=== PATIENT | male | born 1995 | race Caucasian/White ===

== ENCOUNTER 2019-08-01 13:02 | Emergency (ER) | payer OTHER ==
[2019-08-01 13:42] LABS: ABS Basophils 0.1 10^3/ul (0-0.2); ABS Eosinophils 0.1 10^3/ul (0-0.6); ABS Lymphocytes 3.3 10^3/ul (1.0-4.8); ABS Monocytes 0.6 10^3/ul (0-0.8); ABS Neutrophils 5.3 10^3/ul (1.5-7.7); Eosinophil % 0.7 %; Hematocrit 48 % (42-52); Hemoglobin 16.5 g/dL (14.0-18.0); Lymphocyte % 34.9 %; Mean Corpuscular HGB Conc 35 g/dL (31-36); Mean Corpuscular Hemoglobin 30 pg (27-31); Mean Corpuscular Volume 86 fL (80-94); Mean Platelet Volume 7.1 fL (7.4-10.4); Nucleated Red Blood Cells % 0.1; Platelet Count 405 10^3/uL (150-450); Red Blood Count 5.53 10^6 /uL (4.18-5.48); Red Cell Distribution Width 14 % (10-15); White Blood Count 9.4 10^3/uL (3.5-10.8)
[2019-08-01 13:58] LABS: ALT 34 U/L (7-52); AST 22 U/L (13-39); Albumin 4.7 g/dL (3.2-5.2); Albumin/Globulin Ratio 1.6 (1-3); Alkaline Phosphatase 92 U/L (34-104); Anion Gap 7 mmol/L (2-11); BUN/Creatinine Ratio 13.3 (8-20); Blood Urea Nitrogen 14 mg/dL (6-24); CO2 Carbon Dioxide 24 mmol/L (22-32); Calcium 10.3 mg/dL (8.6-10.3); Chloride 107 mmol/L (101-111); EGFR African American 105.9 (>60); EGFR Non-African American 87.5 (>60); Globulin 2.9 g/dL (2-4); Glucose 106 mg/dL (70-100); Potassium 4.3 mmol/L (3.5-5.0); Sodium 138 mmol/L (135-145); Total Protein 7.6 g/dL (6.4-8.9)
[2019-08-01 14:16] LABS: Acetaminophen < 15 mcg/mL; Alcohol < 10 mg/dL (<10); Salicylate < 2.50 mg/dL (<30)
[2019-08-01 14:30] LABS: TSH (Thyroid Stimulating Horm) 1.22 mcIU/mL (0.34-5.60)
--- NOTE | 2019-08-01 14:34 | ED ---
Psychiatric Complaint - HPI Summary HPI Summary: This patient is a 23-year-old male presenting to the ED with a long history of depression and past medical history of instances of self-harm with self harming behavior. Patient states he has not been more depressed recently, however sometimes it just "is instantaneous" and he develops feelings of suicide. He states he has a plan to overdose and has been researching what medications and to what dosage he would need to complete the act of suicide. He also is trying to make a plan aborted by these medications without raising concerns from pharmacies. He does admit to having therapy in the past, however he denies any hospitalization. He states he has lived with the [facility] for years but the thoughts are now more prominent and now he feels he may take action. Arrival into the ED, patient is denying any active suicidal thoughts at this very time, however he states this may change if he were at home. He has never made any attempts in the past, however he has had a history of self harming behavior. Last night he states he took a knife and made small leija to the dorsum of the left arm. Medications include dexmethylphenidate. PMHx depression, anxiety, self harm. - History Of Current Complaint Chief Complaint: EDSuicidal Time Seen by Provider: 08/01/19 13:15 Hx Obtained From: Patient Onset/Duration: Sudden Onset Timing: Constant Severity Initially: Moderate Severity Currently: Moderate Character: Manic, Depressed Aggravating Factor(s): Nothing Alleviating Factor(s): Nothing Associated Signs And Symptoms: Positive: Negative Related History: Positive For: Prior Psychiatric Issues Has Suicidal: Reports: Thoughts, With A Plan - overdose - Allergies/Home Medications Allergies/Adverse Reactions: Allergies Allergy/AdvReac Type Severity Reaction Status Date / Time No Known Allergies Allergy Verified 08/01/19 13:13 Home Medications: Home Medications Dexmethylphenidate HCl [Focalin Xr] 30 mg PO DAILY 08/01/19 [History Confirmed 08/01/19] PMH/Surg Hx/FS Hx/Imm Hx Previously Healthy: Yes Infectious Disease History: No Infectious Disease History: Denies: Traveled Outside the [place] in Last 30 Days - Social History Occupation: Unemployed Lives: Alone Alcohol Use: None Hx Substance Use: No Substance Use Type: Reports: None Smoking Status (MU): Never Smoked Tobacco Review of Systems Negative: Fever, Chills, Fatigue, Skin Diaphoresis Negative: Palpitations, Chest Pain Negative: Shortness Of Breath, Cough Genitourinary: Negative Positive: no symptoms reported, see HPI Negative: Arthralgia, Myalgia Positive: Other - superficial lacerations to the forearm Neurological: Negative Positive: Anxious, Depressed All Other Systems Reviewed And Are Negative: Yes Physical Exam Triage Information Reviewed: Yes Vital Signs On Initial Exam: Initial Vitals Temp Pulse Resp BP Pulse Ox 98.6 F 82 16 170/99 97 08/01/19 13:08 08/01/19 13:08 08/01/19 13:08 08/01/19 13:08 08/01/19 13:08 Vital Signs Reviewed: Yes Appearance: Positive: Well-Appearing, Well-Nourished Skin: Positive: Warm, Skin Color Reflects Adequate Perfusion Head/Face: Positive: Normal Head/Face Inspection Eyes: Positive: EOMI, Conjunctiva Clear Neck: Positive: Supple, No Lymphadenopathy Respiratory/Lung Sounds: Positive: Clear to Auscultation, Breath Sounds Present Cardiovascular: Positive: RRR, Pulses are Symmetrical in both Upper and Lower Extremities Musculoskeletal: Positive: Normal, Strength/ROM Intact Neurological: Positive: Speech Normal Psychiatric: Positive: Normal - patient cooperative for exam AVPU Assessment: Alert Procedures - Sedation Patient Received Moderate/Deep Sedation with Procedure: No Diagnostics - Vital Signs Vital Signs Temp Pulse Resp BP Pulse Ox 08/01/19 13:08 98.6 F 82 16 170/99 97 - Laboratory Lab Results: Lab Results 08/01/19 08/01/19 Range/Units 13:34 13:34 WBC 9.4 (3.5-10.8) 10^3/uL RBC 5.53 H (4.18-5.48) 10^6 /uL Hgb 16.5 (14.0-18.0) g/dL Hct 48 (42-52) % MCV 86 (80-94) fL MCH 30 (27-31) pg MCHC 35 (31-36) g/dL RDW 14 (10-15) % Plt Count 405 (150-450) 10^3/uL MPV 7.1 L (7.4-10.4) fL Neut % (Auto) 57.1 % Lymph % (Auto) 34.9 % [place] % (Auto) 6.6 % Eos % (Auto) 0.7 % Baso % (Auto) 0.7 % Absolute Neuts (auto) 5.3 (1.5-7.7) 10^3/ul Absolute Lymphs (auto) 3.3 (1.0-4.8) 10^3/ul Absolute Monos (auto) 0.6 (0-0.8) 10^3/ul Absolute Eos (auto) 0.1 (0-0.6) 10^3/ul Absolute Basos (auto) 0.1 (0-0.2) 10^3/ul Absolute Nucleated RBC 0.0 10^3/ul Nucleated RBC % 0.1 Sodium 138 (135-145) mmol/L Potassium 4.3 (3.5-5.0) mmol/L Chloride 107 (101-111) mmol/L Carbon Dioxide 24 (22-32) mmol/L Anion Gap 7 (2-11) mmol/L BUN 14 (6-24) mg/dL Creatinine 1.05 (0.67-1.17) mg/dL Est GFR ( Amer) 105.9 (>60) Est GFR (Non-Af Amer) 87.5 (>60) BUN/Creatinine Ratio 13.3 (8-20) Glucose 106 H (70-100) mg/dL Calcium 10.3 (8.6-10.3) mg/dL Total Bilirubin 0.60 (0.2-1.0) mg/dL AST 22 (13-39) U/L ALT 34 (7-52) U/L Alkaline Phosphatase 92 (34-104) U/L Total Protein 7.6 (6.4-8.9) g/dL Albumin 4.7 (3.2-5.2) g/dL Globulin 2.9 (2-4) g/dL Albumin/Globulin Ratio 1.6 (1-3) TSH Pending Salicylates < 2.50 (<30) mg/dL Acetaminophen < 15 mcg/mL Serum Alcohol < 10 (<10) mg/dL Result Diagrams: 08/01/19 13:34 08/01/19 13:34 Lab Statement: Any lab studies that have been ordered have been reviewed, and results considered in the medical decision making process. Course/Dx - Course Course Of Treatment: This patient is evaluated for self harming behavior and suicidal ideations which have been present for several years, however have been more severe in the past few weeks. He does admit to self-harm last night. On physical examination, patient appears well and is smiling on exam. There are small very superficial lacerations to his left forearm which require no additional medical care. Patient is cleared for mental health evaluation at 2: 30 PM. - Differential Dx/Clinical Impression Provider Diagnosis: Depressive disorder Discharge ED - Sign-Out/Discharge Documenting (check all that apply): Sign-Out Patient Signing out patient TO: Earl San - Discharge Plan Condition: Stable Disposition: PSYCHIATRIC FACILITY-OTHER Referrals: [facility] - [place] SAUCEDA [Primary Care Provider] - - Billing Disposition and Condition Condition: STABLE Disposition: Psychiatric Facility Other
[2019-08-01 16:33] LABS: Urine Benzodiazepine Screen None Detected (None Detect); Urine Opiates Screen None Detected (None Detect)
[2019-08-01 16:38] LABS: Urine Bacteria Absent (Absent); Urine Red Blood Cell Absent (Absent); Urine White Blood Cell Trace(0-5/hpf) (Absent)
[2019-08-01 16:43] LABS: Urine Appearance Clear; Urine Color Yellow; Urine Specific Gravity 1.025 (1.010-1.030); Urine Urobilinogen Negative (Negative)
[2019-08-01 16:44] LABS: Urine Bilirubin Negative (Negative); Urine Blood Negative (Negative); Urine Glucose Negative (Negative); Urine Ketones Negative (Negative); Urine Nitrite Negative (Negative); Urine Protein Negative (Negative)
[2019-08-01] MEDS ORDERED: hydrOXYzine HCL TAB* 50 MG PO ONE (23:41)
--- NOTE | 2019-08-02 13:25 | PN ---
ED Psychiatric Progress Note Date of Service: 08/02/19 Subjective: This is a 23 year-old M who is pending admission to [facility] / transfer to another psychiatric facility / discharge to home / or being observed secondary to suicidal ideation and inability to contract for safety "I feel better today but I don't know if because i am in a hospital. Objective: Alert, oriented x 3, improving mood, less SI and no plan, but does not relably contract for safety if discharged. He denies A/VH. Assessment: Patient is unsafe for discharge at the current time. Plan: Pending psychiatric transfer / admit / discharge will follow up daily. Vital Signs Temp Pulse Resp BP Pulse Ox 97.7 F 82 16 147/71 99 08/01/19 22:51 08/01/19 22:51 08/01/19 22:51 08/01/19 22:51 08/01/19 22:51 Lab Results - Entire Visit 08/01/19 08/01/19 08/01/19 15:59 15:59 13:34 WBC RBC Hgb Hct MCV MCH MCHC RDW Plt Count MPV Neut % (Auto) Lymph % (Auto) [place] % (Auto) Eos % (Auto) Baso % (Auto) Absolute Neuts (auto) Absolute Lymphs (auto) Absolute Monos (auto) Absolute Eos (auto) Absolute Basos (auto) Absolute Nucleated RBC Nucleated RBC % Sodium 138 Potassium 4.3 Chloride 107 Carbon Dioxide 24 Anion Gap 7 BUN 14 Creatinine 1.05 Est GFR ( Amer) 105.9 Est GFR (Non-Af Amer) 87.5 BUN/Creatinine Ratio 13.3 Glucose 106 H Calcium 10.3 Total Bilirubin 0.60 AST 22 ALT 34 Alkaline Phosphatase 92 Total Protein 7.6 Albumin 4.7 Globulin 2.9 Albumin/Globulin Ratio 1.6 TSH 1.22 Urine Color Yellow Urine Appearance Clear Urine pH 5 Ur Specific [place] 1.025 Urine Protein Negative Urine Ketones Negative Urine Blood Negative Urine Nitrate Negative Urine Bilirubin Negative Urine Urobilinogen Negative Ur Leukocyte Esterase Negative Urine WBC (Auto) Trace(0-5/hpf) Urine RBC (Auto) Absent Urine Bacteria Absent Urine Glucose Negative Urine Ascorbic Acid Not Reportable Salicylates < 2.50 Urine Opiates Screen None detected Acetaminophen < 15 Ur Barbiturates Screen None detected Ur Phencyclidine Scrn None detected Ur Amphetamines Screen None detected U Benzodiazepines Scrn None detected Urine Cocaine Screen None detected U Cannabinoids Screen None detected Serum Alcohol < 10 08/01/19 13:34 WBC 9.4 RBC 5.53 H Hgb 16.5 Hct 48 MCV 86 MCH 30 MCHC 35 RDW 14 Plt Count 405 MPV 7.1 L Neut % (Auto) 57.1 Lymph % (Auto) 34.9 [place] % (Auto) 6.6 Eos % (Auto) 0.7 Baso % (Auto) 0.7 Absolute Neuts (auto) 5.3 Absolute Lymphs (auto) 3.3 Absolute Monos (auto) 0.6 Absolute Eos (auto) 0.1 Absolute Basos (auto) 0.1 Absolute Nucleated RBC 0.0 Nucleated RBC % 0.1 Sodium Potassium Chloride Carbon Dioxide Anion Gap BUN Creatinine Est GFR ( Amer) Est GFR (Non-Af Amer) BUN/Creatinine Ratio Glucose Calcium Total Bilirubin AST ALT Alkaline Phosphatase Total Protein Albumin Globulin Albumin/Globulin Ratio TSH Urine Color Urine Appearance Urine pH Ur Specific [place] Urine Protein Urine Ketones Urine Blood Urine Nitrate Urine Bilirubin Urine Urobilinogen Ur Leukocyte Esterase Urine WBC (Auto) Urine RBC (Auto) Urine Bacteria Urine Glucose Urine Ascorbic Acid Salicylates Urine Opiates Screen Acetaminophen Ur Barbiturates Screen Ur Phencyclidine Scrn Ur Amphetamines Screen U Benzodiazepines Scrn Urine Cocaine Screen U Cannabinoids Screen Serum Alcohol
--- NOTE | 2019-08-03 06:58 | PN ---
ED Psychiatric Progress Note Date of Service: 08/01/19 Subjective: This is a 23 year-old M who is pending admission to [facility] / transfer to another psychiatric facility to depression. Pt. examined in room 15 at 0658. He is sleeping comfortably. Objective: Vitals: Most recent vital signs documented below. General NAD Laboratory: Current laboratory results documented below. Assessment: Depression. Plan: Pending transfer. Vital Signs Temp Pulse Resp BP Pulse Ox 97.6 F 56 18 141/67 97 08/03/19 04:08 08/03/19 04:08 08/03/19 04:08 08/03/19 04:08 08/03/19 04:08 Lab Results - Entire Visit 08/01/19 08/01/19 08/01/19 15:59 15:59 13:34 WBC RBC Hgb Hct MCV MCH MCHC RDW Plt Count MPV Neut % (Auto) Lymph % (Auto) [place] % (Auto) Eos % (Auto) Baso % (Auto) Absolute Neuts (auto) Absolute Lymphs (auto) Absolute Monos (auto) Absolute Eos (auto) Absolute Basos (auto) Absolute Nucleated RBC Nucleated RBC % Sodium 138 Potassium 4.3 Chloride 107 Carbon Dioxide 24 Anion Gap 7 BUN 14 Creatinine 1.05 Est GFR ( Amer) 105.9 Est GFR (Non-Af Amer) 87.5 BUN/Creatinine Ratio 13.3 Glucose 106 H Calcium 10.3 Total Bilirubin 0.60 AST 22 ALT 34 Alkaline Phosphatase 92 Total Protein 7.6 Albumin 4.7 Globulin 2.9 Albumin/Globulin Ratio 1.6 TSH 1.22 Urine Color Yellow Urine Appearance Clear Urine pH 5 Ur Specific [place] 1.025 Urine Protein Negative Urine Ketones Negative Urine Blood Negative Urine Nitrate Negative Urine Bilirubin Negative Urine Urobilinogen Negative Ur Leukocyte Esterase Negative Urine WBC (Auto) Trace(0-5/hpf) Urine RBC (Auto) Absent Urine Bacteria Absent Urine Glucose Negative Urine Ascorbic Acid Not Reportable Salicylates < 2.50 Urine Opiates Screen None detected Acetaminophen < 15 Ur Barbiturates Screen None detected Ur Phencyclidine Scrn None detected Ur Amphetamines Screen None detected U Benzodiazepines Scrn None detected Urine Cocaine Screen None detected U Cannabinoids Screen None detected Serum Alcohol < 10 08/01/19 13:34 WBC 9.4 RBC 5.53 H Hgb 16.5 Hct 48 MCV 86 MCH 30 MCHC 35 RDW 14 Plt Count 405 MPV 7.1 L Neut % (Auto) 57.1 Lymph % (Auto) 34.9 [place] % (Auto) 6.6 Eos % (Auto) 0.7 Baso % (Auto) 0.7 Absolute Neuts (auto) 5.3 Absolute Lymphs (auto) 3.3 Absolute Monos (auto) 0.6 Absolute Eos (auto) 0.1 Absolute Basos (auto) 0.1 Absolute Nucleated RBC 0.0 Nucleated RBC % 0.1 Sodium Potassium Chloride Carbon Dioxide Anion Gap BUN Creatinine Est GFR ( Amer) Est GFR (Non-Af Amer) BUN/Creatinine Ratio Glucose Calcium Total Bilirubin AST ALT Alkaline Phosphatase Total Protein Albumin Globulin Albumin/Globulin Ratio TSH Urine Color Urine Appearance Urine pH Ur Specific [place] Urine Protein Urine Ketones Urine Blood Urine Nitrate Urine Bilirubin Urine Urobilinogen Ur Leukocyte Esterase Urine WBC (Auto) Urine RBC (Auto) Urine Bacteria Urine Glucose Urine Ascorbic Acid Salicylates Urine Opiates Screen Acetaminophen Ur Barbiturates Screen Ur Phencyclidine Scrn Ur Amphetamines Screen U Benzodiazepines Scrn Urine Cocaine Screen U Cannabinoids Screen Serum Alcohol
[2019-08-03 08:16] VITALS: BP 138/98
--- NOTE | 2019-08-03 11:14 | PN ---
ED Psychiatric Progress Note Date of Service: 08/03/19 Subjective: ED day #2 for this 23 y.o. 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 Today he reports a difficult developmental history growing up in [place] with a mother with borderline PD and a father with type I bipolar. He enlisted in the [employer] but had to receive a medical discharge due to mental health problems. I understand he took a medical leave from [employer] last year. He denies active SI in the ED but states that he doesn't trust himself going home with outpatient follow up. Objective: young white male in paper scrubs; depressed and anxious; denies SI or HI here; can't contract for safety if left the hospital Assessment: Unspecified Depressive DO Plan: Patient needs inpatient psychiatric care. No beds on adult B[facility]. Will continue to try to transfer to outside facility. Vital Signs Temp Pulse Resp BP Pulse Ox 97.7 F 64 16 138/98 97 08/03/19 08:15 08/03/19 08:15 08/03/19 08:15 08/03/19 08:15 08/03/19 08:15 Lab Results - Entire Visit 08/01/19 08/01/19 08/01/19 15:59 15:59 13:34 WBC RBC Hgb Hct MCV MCH MCHC RDW Plt Count MPV Neut % (Auto) Lymph % (Auto) [place] % (Auto) Eos % (Auto) Baso % (Auto) Absolute Neuts (auto) Absolute Lymphs (auto) Absolute Monos (auto) Absolute Eos (auto) Absolute Basos (auto) Absolute Nucleated RBC Nucleated RBC % Sodium 138 Potassium 4.3 Chloride 107 Carbon Dioxide 24 Anion Gap 7 BUN 14 Creatinine 1.05 Est GFR ( Amer) 105.9 Est GFR (Non-Af Amer) 87.5 BUN/Creatinine Ratio 13.3 Glucose 106 H Calcium 10.3 Total Bilirubin 0.60 AST 22 ALT 34 Alkaline Phosphatase 92 Total Protein 7.6 Albumin 4.7 Globulin 2.9 Albumin/Globulin Ratio 1.6 TSH 1.22 Urine Color Yellow Urine Appearance Clear Urine pH 5 Ur Specific [place] 1.025 Urine Protein Negative Urine Ketones Negative Urine Blood Negative Urine Nitrate Negative Urine Bilirubin Negative Urine Urobilinogen Negative Ur Leukocyte Esterase Negative Urine WBC (Auto) Trace(0-5/hpf) Urine RBC (Auto) Absent Urine Bacteria Absent Urine Glucose Negative Urine Ascorbic Acid Not Reportable Salicylates < 2.50 Urine Opiates Screen None detected Acetaminophen < 15 Ur Barbiturates Screen None detected Ur Phencyclidine Scrn None detected Ur Amphetamines Screen None detected U Benzodiazepines Scrn None detected Urine Cocaine Screen None detected U Cannabinoids Screen None detected Serum Alcohol < 10 08/01/19 13:34 WBC 9.4 RBC 5.53 H Hgb 16.5 Hct 48 MCV 86 MCH 30 MCHC 35 RDW 14 Plt Count 405 MPV 7.1 L Neut % (Auto) 57.1 Lymph % (Auto) 34.9 [place] % (Auto) 6.6 Eos % (Auto) 0.7 Baso % (Auto) 0.7 Absolute Neuts (auto) 5.3 Absolute Lymphs (auto) 3.3 Absolute Monos (auto) 0.6 Absolute Eos (auto) 0.1 Absolute Basos (auto) 0.1 Absolute Nucleated RBC 0.0 Nucleated RBC % 0.1 Sodium Potassium Chloride Carbon Dioxide Anion Gap BUN Creatinine Est GFR ( Amer) Est GFR (Non-Af Amer) BUN/Creatinine Ratio Glucose Calcium Total Bilirubin AST ALT Alkaline Phosphatase Total Protein Albumin Globulin Albumin/Globulin Ratio TSH Urine Color Urine Appearance Urine pH Ur Specific [place] Urine Protein Urine Ketones Urine Blood Urine Nitrate Urine Bilirubin Urine Urobilinogen Ur Leukocyte Esterase Urine WBC (Auto) Urine RBC (Auto) Urine Bacteria Urine Glucose Urine Ascorbic Acid Salicylates Urine Opiates Screen Acetaminophen Ur Barbiturates Screen Ur Phencyclidine Scrn Ur Amphetamines Screen U Benzodiazepines Scrn Urine Cocaine Screen U Cannabinoids Screen Serum Alcohol
--- NOTE | 2019-08-03 11:42 | ED ---
Progress - Progress Note Progress Note: At 11:37, MH data steward reports that the patient's case was reviewed by Dr. Brandan Nunez who will discharge to patient with a diagnosis of unspecified depression, pending an appropriate appointment for a follow up on 08/03/19. Patient has a follow up with an appointment at 13:30 on 08/03/[address] Baker. - Consult/PCP Time Called: 15:00 Course/Dx - Course Course Of Treatment: This patient is evaluated for self harming behavior and suicidal ideations which have been present for several years, however have been more severe in the past few weeks. He does admit to self-harm last night. On physical examination, patient appears well and is smiling on exam. There are small very superficial lacerations to his left forearm which require no additional medical care. Patient is cleared for mental health evaluation at 2: 30 PM. - Diagnoses Provider Diagnoses: Depressive disorder Discharge ED - Sign-Out/Discharge Documenting (check all that apply): Patient Departure - Discharge - Discharge Plan Condition: Stable Disposition: HOME Patient Education Materials: Depression (ED) Referrals: [facility] [place] - [place] [Primary Care Provider] - - Attestation Statements Document Initiated by Scribe: Yes Documenting Scribe: Ankita Gray Provider For Whom Scribe is Documenting (Include Credential): Alpesh Tolbert MD Scribe Attestation: Ankita Martell, scribed for Alpesh Tolbert MD on 08/03/19 at 1306. Status of Scribe Document: Ready
== END 2019-08-03 12:01 | disposition home or self-care (01) ==
LOC: ED 13:02
DX: F32.9 Major depressive disorder, single episode, unspecified (principal); S51.812A Laceration without foreign body of left forearm, initial encounter; X78.9XXA Intentional self-harm by unspecified sharp object, initial encounter; Y92.9 Unspecified place or not applicable; I49.9 Cardiac arrhythmia, unspecified
CPT/HCPCS: 36415; 80053; 80307; 80320; 80329; 81003; 84443; 85025; 87086; 93005; 99285; A9270-GY; G0480